=== PATIENT | female | born 1945 | race Caucasian/White ===

== ENCOUNTER 2022-05-18 11:42 | Observation (INO) ==
[2022-05-18] MEDS ORDERED: ONDANSETRON 4 MG/2 ML VIAL ONE (12:21)
[2022-05-18] MEDS ORDERED: SODIUM CHLORIDE 0.9% 500 ML IV STA (12:21)
[2022-05-18] MEDS ORDERED: ONDANSETRON 4 MG/2 ML VIAL IV STA (12:21)
[2022-05-18 12:27] LABS: Basophils % 0.3 % (0.0-0.8); Eosinophils # 0.2 10*3/uL (0.0-0.87); Eosinophils % 3.3 % (0.00-10.9); Hematocrit 46.5 VOL% (35.7-47.0); Hemoglobin 14.8 GM/DL (12.0-16.0); Immature Granulocytes % 0.1 %; Immature Granulocytes Absolute 0.01 #; Lymphocytes # 2.2 10*3/uL (1.4-4.0); Lymphocytes % 30.4 % (21.3-54.2); Mean Corpuscular HGB Conc 31.8 GM/DL (32-36); Mean Corpuscular Volume 90.5 FL (87-102); Monocytes # 0.6 10*3/uL (0.11-0.8); Monocytes % 8.1 % (1.7-12.7); Neutrophils % 57.8 % (38.7-73.9); Platelet Count 405 T/CUMM (130-400); Red Blood Count 5.14 MC/CUMM (3.8-5.5); Red Cell Distribution Width 13.6 % (9.3-17.3); White Blood Count 7.3 T/CUMM (4-12)
[2022-05-18 12:40] LABS: Albumin 3.8 G/DL (3.4-5.0); Bilirubin,Total 0.4 MG/DL (0.20-1.00); Calcium 9.7 MG/DL (8.5-10.1); Osmolality,Calculated 269.2 MOS/KG (273-304); Total Protein 8.1 G/DL (6.4-8.2)
[2022-05-18 15:30] LABS: Mucus,Urine Occasional /LPF (Occasional); RBC,Urine <1 /HPF (0-4); Squamous Epithelial Cell,Urine Occasional /HPF (0-10)
[2022-05-18 15:31] LABS: Bilirubin,Urine Negative (Negative); Blood, Urine Negative (Negative); Glucose,Urine (UA) Negative (Negative); Ketones,Urine Negative (Negative); Nitrite,Urine Negative (Negative); Protein,Urine Negative (Negative); Urine Appearance Clear (Clear); Urine Color Yellow (Yellow); Urine Urobilinogen 0.2 eU/dL (<2.0)
[2022-05-18] MEDS ORDERED: metroNIDAZOLE INJ 500 MG/100 ML PREMIX IV STA (18:39)
[2022-05-18] MEDS ORDERED: LEVOFLOXACIN INJ 750 MG/150 ML PREMIX IV STA (18:39)
[2022-05-18] MEDS ORDERED: ACETAMINOPHEN 325 MG TABLET PO PRN (19:25)
[2022-05-18] MEDS ORDERED: ONDANSETRON 4 MG/2 ML VIAL IV PRN (19:25)
[2022-05-18] MEDS ORDERED: cloNIDine 0.1 MG TABLET PO PRN (19:27)
[2022-05-18] MEDS: LACTATED RINGERS 1,000 ML IV SCH (23:37)
[2022-05-18] MEDS: LOSARTAN 50 MG TABLET PO SCH (23:37)
[2022-05-19] MEDS: metroNIDAZOLE INJ 500 MG/100 ML PREMIX IV SCH ×2 (03:30→12:28)
[2022-05-19] MEDS ORDERED: SCOPOLAMINE 1.5 MG PATCH TRANSDERM ONE (07:57)
[2022-05-19] MEDS ORDERED: CLINDAMYCIN INJ 900 MG/50 ML PREMIX IV ONE (08:00)
[2022-05-19] MEDS ORDERED: INDOCYANINE GREEN 25 MG VIAL IV ONE (08:00)
[2022-05-19] MEDS ORDERED: fentaNYL 100 MCG/2 ML VIAL ONE ×2 (08:40→10:35)
[2022-05-19] MEDS ORDERED: amLODIPine 5 MG TABLET PO SCH (09:00)
[2022-05-19] MEDS ORDERED: PANTOPRAZOLE 40 MG TABLET PO SCH (09:00)
[2022-05-19] MEDS ORDERED: LACTATED RINGERS 1,000 ML IV SCH (09:00)
[2022-05-19] MEDS ORDERED: ROCURONIUM 50 MG/5 ML VIAL IV ONE (09:25)
[2022-05-19] MEDS ORDERED: propofoL 200 MG/20 ML VIAL IV ONE (09:25)
[2022-05-19] MEDS ORDERED: SEVOFLURANE 1 UNIT/15 MINUTE INH ONE ×3 (09:25→10:41)
[2022-05-19] MEDS ORDERED: LIDOCAINE 2% 5 ML VIAL ONE (09:25)
[2022-05-19] MEDS ORDERED: ONDANSETRON 4 MG/2 ML VIAL ONE (09:25)
[2022-05-19] MEDS ORDERED: ACETAMINOPHEN INJ 1,000 MG/100 ML VIAL IV ONE (10:02)
[2022-05-19] MEDS ORDERED: TISSUE ADHESIVE 1 EACH APPLICATOR TOP ONE (10:34)
[2022-05-19] MEDS ORDERED: NEOSTIGMINE 10 MG/10 ML VIAL ONE (10:37)
[2022-05-19] MEDS ORDERED: GLYCOPYRROLATE 0.4 MG/2 ML VIAL ONE (10:41)
[2022-05-19] MEDS ORDERED: HYDROmorphone 1 MG/1 ML SYRINGE IV PRN (11:09)
[2022-05-19] MEDS ORDERED: ONDANSETRON 4 MG/2 ML VIAL IV PRN (11:09)
[2022-05-19 11:49] VITALS: BP 117/58
[2022-05-19] MEDS: LOSARTAN 50 MG TABLET PO SCH (12:18)
[2022-05-19] MEDS: LACTATED RINGERS 1,000 ML IV SCH (12:28)
[2022-05-19] MEDS ORDERED: GLUCAGON 1 MG VIAL IM PRN (12:31)
[2022-05-19] MEDS ORDERED: DEXTROSE 10% 250 ML BAG IV PRN (12:34)
[2022-05-20] MEDS ORDERED: LEVOFLOXACIN INJ 750 MG/150 ML PREMIX IV SCH (21:00)
== END 2022-05-19 18:11 | disposition home or self-care (01) ==
LOC: N.ED 11:42 → N.EDINP 11:42 → N.2W 22:17
PROVIDERS: ADMIT Student in an Organized Health Care Education/Training Program; ATTEND Student in an Organized Health Care Education/Training Program